=== PATIENT | female | born 1960 | race Hispanic/Latino ===

== ENCOUNTER 2018-06-14 11:00 | Inpatient (IN) | payer OTHER ==
[~2018-06-14] VITALS: Ht 154.9 cm; Wt 62.2 kg
[2018-06-14 12:00] LABS: BASOPHILS % (AUTO) 0.4 % (0.0-5.0); EOSINOPHILS % (AUTO) 1.2 % (0.0-8.0); HEMATOCRIT 41.7 % (36-48); LYMPHOCYTES % (AUTO) 26.5 % (21.0-51.0); MEAN CORPUSCULAR HEMOGLOBIN 29.6 pg (27.0-33.0); MEAN CORPUSCULAR HGB CONC 33.9 g/dL (32.0-36.0); MEAN CORPUSCULAR VOLUME 87.5 fL (79-99); MONOCYTES % (AUTO) 5.1 % (3.0-13.0); NEUTROPHILS % (AUTO) 66.8 % (40.0-77.0); PLATELET COUNT (AUTO) 282 K/uL (130-400); RED BLOOD CELL COUNT(AUTO) 4.76 MIL/uL (4.00-5.50); RED CELL DISTRIBUTION WIDTH 12.7 % (11.0-15.5); WHITE BLOOD COUNT (AUTO) 8.3 K/uL (4.8-10.8)
[2018-06-14 12:12] VITALS: BP 124/63
[2018-06-14] MEDS ORDERED: CETI10CA5 PO (12:28)
[2018-06-15] VITALS (18 sets, daily range): BP systolic 108–133; BP diastolic 57–80
[2018-06-15] MEDS ORDERED: CALDOLOR 800MG+NS 250ML 250 ML IV ONE (09:04)
[2018-06-15] MEDS ORDERED: LACTATED RINGERS 1000ML 1,000 ML IV ONE (09:31)
[2018-06-15] MEDS ORDERED: DURAMORPH PF1 MG/ML 10ML AMP IV ONE (09:49)
[2018-06-15] MEDS ORDERED: FENTANYL CITRATE PF 50 MCG/1 ML 2ML VIAL ONE (09:50)
[2018-06-15] MEDS ORDERED: MIDAZOLAM HCL 1 MG/ML 2ML VIAL ONE (09:53)
[2018-06-15] MEDS ORDERED: MAGNESIUM SULFATE 1 GM/2 ML VIAL ONE (10:02)
[2018-06-15] MEDS ORDERED: KETAMINE 50MG/ML SYRINGE 50 MG/ML DISP.SYRIN IV ONE (10:04)
[2018-06-15] MEDS ORDERED: ONDANSETRON HCL MDV 20ML 2 MG/ML VIAL ONE (10:11)
[2018-06-15] MEDS ORDERED: DEXAMETHASONE SOD PHOSPHATE 10MG/ML 1ML VIAL ONE (10:11)
[2018-06-15] MEDS ORDERED: PROPOFOL 10 MG/ML 20ML VIAL IV ONE ×2 (10:12→12:29)
[2018-06-15] MEDS ORDERED: ROCURONIUM 10MG/1ML SYR 10 MG/ML ML ONE (10:12)
[2018-06-15] MEDS ORDERED: LIDOCAINE PF 2% 5ML ABBOJECT ONE (10:12)
[2018-06-15] MEDS: CEFAZOLIN SODIUM 1 GM VIAL ONE ×2 (10:26→10:50)
[2018-06-15] MEDS ORDERED: ACET-66 PO (10:30)
[2018-06-15] MEDS ORDERED: EPHEDRINE SULFATE 50 MG/ML AMPULE ONE (10:41)
[2018-06-15] MEDS ORDERED: TRANEXAMIC ACID 1000MG/10ML IV ONE (11:16)
[2018-06-15] MEDS ORDERED: NEOSTIGMINE 5MG/5ML SYR IV ONE (12:12)
[2018-06-15] MEDS ORDERED: GLYCOPYRROLATE 1 MG/5 ML SYRINGE ONE (12:12)
[2018-06-15] MEDS ORDERED: PROPOFOL 1000 MG/100 ML 100 ML IV ONE (12:29)
[2018-06-15] MEDS ORDERED: PROMETHAZINE HCL 25 MG/ML 1ML AMPULE IM PRN ×3 (13:00→18:30)
[2018-06-15] MEDS ORDERED: HYDROCODONE/ACETAMINOPHEN 5/325 MG TAB PO PRN ×3 (13:00→18:30)
[2018-06-15] MEDS ORDERED: DOCUSATE SODIUM 100 MG CAP PO PRN (13:00)
[2018-06-15] MEDS ORDERED: MEPERIDINE-PF 75 MG/ML SYG IM PRN (13:00)
[2018-06-15] MEDS ORDERED: SIMETHICONE 80 MG TAB.CHEW PO PRN (13:00)
[2018-06-15] MEDS ORDERED: DIPH,PERTUSS(ACELL),TET VAC/PF 0.5 ML VIAL IM SCH (13:00)
[2018-06-15] MEDS ORDERED: ACETAMINOPHEN-CODEINE 300/30MG TAB PO PRN (13:00)
[2018-06-15] MEDS ORDERED: BISACODYL 10 MG SUPP.RECT RC PRN ×2 (13:00)
[2018-06-15] MEDS ORDERED: METOCLOPRAMIDE 10 MG/2 ML VIAL ONE (13:11)
[2018-06-15] MEDS: ONDANSETRON HCL 4 MG/2 ML VIAL IVP PRN ×2 (13:15→14:12)
[2018-06-15] MEDS: DEXTROSE 5 %-0.45 % NACL 1,000 ML IV PRN (17:28)
[2018-06-15] MEDS ORDERED: METOCLOPRAMIDE 10 MG/2 ML VIAL IVP PRN (18:30)
[2018-06-15] MEDS ORDERED: NALOXONE HCL 0.4 MG/1 ML ML IVP PRN ×2 (18:30)
[2018-06-15] MEDS ORDERED: EPHEDRINE SULFATE 50 MG/ML AMPULE IVP PRN (18:30)
[2018-06-15] MEDS ORDERED: DiphenhydrAMINE HCL 50 MG/ML VIAL IVP PRN (18:30)
[2018-06-15] MEDS ORDERED: ONDANSETRON HCL 4 MG/2 ML 8 MG in SODIUM CHLORIDE 0.9% 50 ML IVP NR (18:30)
[2018-06-15] MEDS ORDERED: MORPHINE SULFATE 2 MG/ML 1ML SYG IVP PRN (18:30)
[2018-06-15] MEDS ORDERED: ONDANSETRON HCL 4 MG/2 ML VIAL IVP PRN ×2 (18:30)
[2018-06-15] MEDS: SIMETHICONE 80 MG TAB.CHEW PO PRN (20:36)
[2018-06-15] MEDS: DOCUSATE SODIUM 100 MG CAP PO PRN (20:36)
[2018-06-15] MEDS: CALDOLOR 800MG+NS 250ML 250 ML IVPB SCH (20:37)
[2018-06-15] MEDS: HYDROCODONE/ACETAMINOPHEN 5/325 MG TAB PO PRN (23:59)
[2018-06-16] VITALS (7 sets, daily range): BP systolic 77–127; BP diastolic 45–81
[2018-06-16] MEDS: DEXTROSE 5 %-0.45 % NACL 1,000 ML IV PRN (02:41)
[2018-06-16] MEDS: ONDANSETRON HCL 4 MG/2 ML VIAL IVP PRN (05:21)
[2018-06-16] MEDS: CALDOLOR 800MG+NS 250ML 250 ML IVPB SCH (05:21)
[2018-06-16 06:30] LABS: HEMATOCRIT 37.7 % (36-48); MEAN CORPUSCULAR HEMOGLOBIN 29.1 pg (27.0-33.0); MEAN CORPUSCULAR HGB CONC 33.2 g/dL (32.0-36.0); MEAN CORPUSCULAR VOLUME 87.6 fL (79-99); PLATELET COUNT (AUTO) 261 K/uL (130-400); RED CELL DISTRIBUTION WIDTH 12.8 % (11.0-15.5); WHITE BLOOD COUNT (AUTO) 14.2 K/uL (4.8-10.8)
[2018-06-16] MEDS: DOCUSATE SODIUM 100 MG CAP PO PRN ×2 (08:19→20:39)
[2018-06-16] MEDS: SIMETHICONE 80 MG TAB.CHEW PO PRN ×4 (08:20→20:39)
[2018-06-16] MEDS: HYDROCODONE/ACETAMINOPHEN 5/325 MG TAB PO PRN (08:21)
[2018-06-16] MEDS ORDERED: LACTATED RINGERS 1000ML IV ONE (12:30)
[2018-06-16] MEDS: IBUPROFEN 800 MG TAB PO SCH ×2 (13:55→20:41)
[2018-06-17 03:26] VITALS: BP 118/70
[2018-06-17] MEDS: IBUPROFEN 800 MG TAB PO SCH ×2 (04:49→12:59)
[2018-06-17 07:55] VITALS: BP 123/83
[2018-06-17] MEDS: SIMETHICONE 80 MG TAB.CHEW PO PRN ×2 (09:10→12:58)
[2018-06-17 11:24] VITALS: BP 134/65
== END 2018-06-17 15:10 | disposition home or self-care (01) | DRG 743 ==
LOC: EDSTATUS 11:00 → DAHIP 06-15 08:38 → WSH 06-15 13:45
PROVIDERS: ADMIT Obstetrics & Gynecology; ATTEND Obstetrics & Gynecology
PROC: 0UT70ZZ Resection of Bilateral Fallopian Tubes, Open Approach (ICD-10-PCS; 2018-06-15)
PROC: 0UT20ZZ Resection of Bilateral Ovaries, Open Approach (ICD-10-PCS; 2018-06-15)
PROC: 0UN20ZZ Release Bilateral Ovaries, Open Approach (ICD-10-PCS; 2018-06-15)
PROC: 0TNB0ZZ Release Bladder, Open Approach (ICD-10-PCS; 2018-06-15)
PROC: 0UT90ZZ Resection of Uterus, Open Approach (ICD-10-PCS; principal; 2018-06-15 10:28)
DX: D25.9 Leiomyoma of uterus, unspecified (principal); N73.6 Female pelvic peritoneal adhesions (postinfective); D26.0 Other benign neoplasm of cervix uteri
CPT/HCPCS: 36415; 85025; 85027; 86850; 86900; 86901; 88104; 88305; 88307; 90715; A4218; A4344; J0690; J1100; J1741; J2001; J2250; J2274; J2405; J2550; J2704; J2710; J2765; J3010; J3475; J3490; J7120